=== PATIENT | male | born 1970 | race Caucasian/White ===

== ENCOUNTER 2021-01-12 01:36 | Emergency (ER) | payer SELFPAY ==
[~2021-01-12] VITALS: Ht 193 cm; Wt 65.9 kg
[2021-01-12] MEDS ORDERED: IBUP80TA PO (02:39)
[2021-01-12 02:42] LABS: HEMATOCRIT 39.5 % (42.0-52.0); HEMOGLOBIN 13.4 g/dl (13.5-17.5); MEAN CORPUSCULAR HEMOGLOBIN 32.3 pg (27.0-33.0); MEAN CORPUSCULAR HGB CONC 33.9 g/dl (32.0-36.5); MEAN CORPUSCULAR VOLUME 95.2 fl (80.0-96.0); PLATELET COUNT, AUTOMATED 245 10^3/uL (150-450); RED BLOOD COUNT 4.15 10^6/uL (4.30-6.10); WHITE BLOOD COUNT 8.6 10^3/uL (4.0-10.0)
[2021-01-12 03:21] LABS: ACETAMINOPHEN LEVEL < 2.0 UG/ML (10.0-30.0); ALBUMIN 3.3 GM/DL (3.2-5.2); ALT/SGPT 29 U/L (12-78); BILIRUBIN,DIRECT 0.1 MG/DL (0.0-0.2); BILIRUBIN,TOTAL 0.4 MG/DL (0.2-1.0); BLOOD UREA NITROGEN 9 MG/DL (7-18); CALCIUM LEVEL 8.3 MG/DL (8.5-10.1); CARBON DIOXIDE LEVEL 27 MEQ/L (21-32); CHLORIDE LEVEL 106 MEQ/L (98-107); CREATININE FOR GFR 0.72 MG/DL (0.70-1.30); ETHYL ALCOHOL (ETHANOL) 0.164 % (0.000-0.010); GLOMERULAR FILTRATION RATE > 60.0 (>56); GLUCOSE, FASTING 83 MG/DL (70-100); POTASSIUM SERUM 3.9 MEQ/L (3.5-5.1); SALICYLATE LEVEL 4.8 MG/DL (5.0-30.0); SODIUM LEVEL 139 MEQ/L (136-145); TOTAL PROTEIN 6.6 GM/DL (6.4-8.2)
[2021-01-12 03:36] LABS: AMPHETAMINES LEVEL URINE NEGATIVE (NEGATIVE); BARBITURATES URINE NEGATIVE (NEGATIVE); BENZODIAZEPINES URINE NEGATIVE (NEGATIVE); CANNABINOIDS URINE POSITIVE (NEGATIVE); COCAINE METABOLITE URINE NEGATIVE (NEGATIVE); METHADONE URINE NEGATIVE (NEGATIVE); OPIATES URINE NEGATIVE (NEGATIVE); PHENCYCLIDINE URINE NEGATIVE (NEGATIVE)
--- NOTE | 2021-01-12 08:08 | MHCRPDOC ---
[facility] Consultation Consultation DATE OF CONSULTATION: 01/12/21 CONSULTATION REQUESTED BY: ED team REASON FOR CONSULTATION: Per mental health evaluation in ED: "pt reportedly making threats to harm his brother earlier tonight, brother called 911. Pt has reportedly been drinking tonight as well" RELEVANT HISTORY: Patient is a 50-year-old male, who reports history of schizophrenia, presented by police after making threats to brother. Had been drinking alcohol, BAL of 0.16 at 2:33 AM. On interview is agitated, irritable, states he got into an argument over tomatoes, otherwise is rambling about how he wants to fight his brother and harm others. States he was treated for schizophrenia [place] in [facility], then goes on to say that "this is the reason I am not getting anything for this which is also trigger for this whole thing". When asking about details of any suicidal, self-harm thoughts gets irritable and threatens to attack me with my own shoes. "I will take those shoes and beat you with them if you do not leave". PAST PSYCHIATRIC HISTORY: Patient reports schizophrenia, unclear if compliant with medication PAST MEDICAL HISTORY: Needs further work-up by medical team to determine FAMILY HISTORY: Unable to assess patient was cooperative to interview PERSONAL AND SOCIAL HISTORY: The patient was born and raised in [place]. Resides in: [place] Unable to obtain further information, patient was uncooperative to interview SUBSTANCE ABUSE HISTORY: Heavy alcohol use, unable to obtain further patient was uncooperative to interview LEGAL HISTORY: Unknown MENTAL STATUS EXAMINATION: Patient is a 50-year old male, who is mildly emaciated, disheveled, tall, mario dunlap, poor eye contact Speech is rambling. Language skills are poor. Thought processes including: Disorganized. Thought content: Vague homicidal ideation, threatening. Abstract reasoning, and computation: Unable to fully assess. Description of associations: Poor. Description of abnormal or psychotic thoughts: Appears internally preoccupied. Judgment: Poor. Insight: Poor. Orientation to person and place. Recent and remote memory: Unable to fully assess. Attention span and concentration: Poor Language: Ethiopian. Fund of knowledge: Unable to fully assess. Mood:" I'm gonna fight him". Affect: Angry, hostile, preoccupied, disorganized DIAGNOSIS: 1. Schizophrenia per history 2. Alcohol use disorder, severe PLAN: 1. Should obtain collateral for better assessment off safety and psych history, medication history to allow for adequate stabilization, patient refused to cooperate to allow information to do so to obtain her records. 2. Needs to be medically cleared before admission. If above criteria is met and patient remains hostile and dangerous to self and others meets criteria for inpatient admission considering history of sc hizophrenia, level of disorganization and homicidal ideation. We will also need to be placed on the CIWA protocol and thiamine if admitted, due to risk of alcohol withdrawal symptoms, seizures, delirium tremens, Warneke Korsakoff syndrome. Should also be evaluated for alcoholic hallucinosis after admission. Vital Signs Vital Signs Date Time Temp Pulse Resp B/P (MAP) Pulse Ox O2 Delivery O2 Flow Rate FiO2 01/12/21 06:26 97.3 85 18 118/67 (84) 97 Room Air Laboratory Data 24H Labs Laboratory Tests 2 01/12/21 02:33: Nucleated Red Blood Cells % (auto) 0.0, Anion Gap 6L, Glomerular Filtration Rate > 60.0, Calcium Level 8.3L, Total Bilirubin 0.4, Direct Bilirubin 0.1, Aspartate Amino Transf (AST/SGOT) 21, Alanine Aminotransferase (ALT/SGPT) 29, Alkaline Phosphatase 55, Total Protein 6.6, Albumin 3.3, Albumin/Globulin Ratio 1.0, Thyroid Stimulating Hormone (TSH) 1.810, Salicylates Level 4.8L, Acetaminophen Level < 2.0L, Ethyl Alcohol Level 0.164H 01/12/21 03:01: Urine Opiates Screen NEGATIVE, Urine Methadone Screen NEGATIVE, Urine Barbiturates Screen NEGATIVE, Urine Phencyclidine Screen NEGATIVE, Urine Amphetamines Screen NEGATIVE, Urine Benzodiazepines Screen NEGATIVE, Urine Cocaine Metabolite Screen NEGATIVE, Urine Cannabinoids Screen POSITIVEH Home Medications Scheduled Ibuprofen (Ibuprofen) 800 Mg Tablet, 800 MG PO TID for pain, (Reported) Allergies Coded Allergies: sulfite (Verified Allergy, Intermediate, unknown, 01/12/21) ЮЛИЯ LOWERY MD Jan 12, 2021 08:08
[2021-01-12] MEDS ORDERED: IBUPROFEN 800 MG TAB PO ONE ×2 (12:20→21:20)
[2021-01-12] MEDS ORDERED: HYDR-3363 PO (12:44)
[2021-01-12] MEDS ORDERED: THIA100T7 PO (12:44)
[2021-01-12] MEDS ORDERED: HOME MED LIST COMPLETE! XX SCH (12:45)
[2021-01-12 17:01] LABS: RSV AMPLIFICATION NEGATIVE (NEGATIVE)
--- NOTE | 2021-01-12 19:07 | ECGEPIP ---
[facility] - ED Test Date: 2021-01-12 Pat Name: ELENA LEYVA Department: Room: - Gender: Male Director Of Education: SAMUEL : 1970 Requested By: Jerald Posadas Order Number: [id number] Reading MD: Yady Reed Measurements Intervals [place] Rate: 60 P: 73 CO: 172 QRS: 84 QRSD: 100 T: 66 QT: 408 QTc: 408 Interpretive Statements Normal sinus rhythm No prior Electronically Signed on 01-12-2021 19:07:26 EDT by Yady Reed
[2021-01-12 20:44] VITALS: BP 130/86
== END 2021-01-12 22:40 ==
LOC: M ED 01:36
DX: F20.0 Paranoid schizophrenia (principal); F10.10 Alcohol abuse, uncomplicated; Z88.8 Allergy status to other drugs, medicaments and biological substances

== ENCOUNTER → 2021-04-07 | Outpatient (REF) ==
[~2021-04-07] MED LIST: HYDR-3363 PO; IBUP80TA PO; THIA100T7 PO
== END ==
LOC: M LAB 12:01
PROVIDERS: ATTEND Nurse Practitioner Adult Health
DX: Z02.1 Encounter for pre-employment examination (principal)

== ENCOUNTER → 2023-04-15 | Outpatient (REF) | payer SELFPAY | LOC: M RAD 14:11 → EDSTATUS 14:24 | PROVIDERS: ATTEND Nurse Practitioner Adult Health | DX: Z02.9 Encounter for administrative examinations, unspecified (principal) ==

== ENCOUNTER → 2023-04-16 | Outpatient (REF) | LOC: M CARPUL 07:49 | PROVIDERS: ATTEND Nurse Practitioner Adult Health | DX: Z02.9 Encounter for administrative examinations, unspecified (principal) ==

== ENCOUNTER → 2024-05-11 | Outpatient (REF) | LOC: M CARPUL 13:11 | PROVIDERS: ATTEND Nurse Practitioner Adult Health | DX: Z01.89 Encounter for other specified special examinations (principal) ==

== ENCOUNTER 2025-01-12 10:23 | Emergency (ER) | payer OTHER, SELFPAY ==
[~2025-01-12] VITALS: Ht 193 cm; Wt 75.0 kg
[2025-01-12 11:16] LABS: BASO # 0.1 10^3/uL (0.0-0.2); BASO % 0.9 % (0.0-1.0); EOS # 0.2 10^3/uL (0.0-0.5); EOS % 2.6 % (0.0-3.0); LYMPH # 2.7 10^3/uL (1.5-5.0); LYMPH % 30.5 % (24.0-44.0); MONO # 0.6 10^3/uL (0.0-0.8); MONO % 6.8 % (2.0-8.0); NEUTROPHILS # 5.3 10^3/uL (1.5-8.5); NEUTROPHILS % 59.0 % (36.0-66.0); PLATELET COUNT, AUTOMATED 253 10^3/uL (150-450)
[2025-01-12] MEDS: METOPROLOL TART 50 MG TAB PO ONE (11:18)
[2025-01-12] MEDS: METOPROLOL 5 MG/5 ML VIAL IV SCH (11:27)
[2025-01-12 11:40] LABS: CK-MB VALUE MASS 2.0 NG/ML (<3.6); ETHYL ALCOHOL (ETHANOL) < 0.003 % (0.000-0.010)
[2025-01-12 11:41] LABS: CPK CREATINE PHOSPHOKINASE 76 U/L (46-171); MB/CK RELATIVE INDEX 2.63 (< OR =4)
[2025-01-12 11:42] LABS: CALCIUM LEVEL 10.1 MG/DL (8.5-10.1); CARBON DIOXIDE LEVEL 28 MMOL/L (20-31); CHLORIDE LEVEL 104 MMOL/L (98-107); CREATININE FOR GFR 1.01 MG/DL (0.70-1.30); GLOMERULAR FILTRATION RATE 87.8 (>56); MAGNESIUM LEVEL 2.0 MG/DL (1.8-2.4); POTASSIUM SERUM 4.3 MMOL/L (3.5-5.1); SODIUM LEVEL 143 MMOL/L (136-145)
[2025-01-12] MEDS ORDERED: CHOL12508 PO (12:21)
[2025-01-12] MEDS ORDERED: ISOVUE-370 76% 100 ML VIAL As Ordered ONE (12:21)
[2025-01-12] MEDS ORDERED: HOME MED LIST COMPLETE! XX SCH (12:25)
[2025-01-12 14:26] LABS: AMPHETAMINES LEVEL URINE NEGATIVE (NEGATIVE); BARBITURATES URINE NEGATIVE (NEGATIVE); BENZODIAZEPINES URINE NEGATIVE (NEGATIVE); COCAINE METABOLITE URINE NEGATIVE (NEGATIVE); METHADONE URINE NEGATIVE (NEGATIVE); OPIATES URINE NEGATIVE (NEGATIVE); PHENCYCLIDINE URINE NEGATIVE (NEGATIVE)
[2025-01-12 14:28] LABS: CANNABINOIDS URINE POSITIVE (NEGATIVE)
[2025-01-12] MEDS: DIGOXIN INJ 0.5 MG/2 ML AMP IV ONE ×2 (15:12→17:39)
[2025-01-12 17:38] VITALS: BP 119/91
[2025-01-12] MEDS: METOPROLOL TART 25 MG TABLET PO ONE (17:38)
[2025-01-12] MEDS ORDERED: LOPR1TAB6 PO (18:21)
[2025-01-12 18:22] VITALS: BP 118/90; TEMP 96.9; O2SAT 96
== END 2025-01-12 18:34 | disposition home or self-care (01) ==
LOC: M ED 10:23
DX: I48.91 Unspecified atrial fibrillation (principal); F10.10 Alcohol abuse, uncomplicated; F12.10 Cannabis abuse, uncomplicated
CPT/HCPCS: 71045; 71275; 80048; 80307; 82077; 82550; 82553; 83735; 84443; 84484; 85025; 93005; 93041; 94760; 96374; 96375; 96376; 99285; J0616; J1160; Q9967